=== PATIENT | male | born 1990 | race Caucasian/White ===

== ENCOUNTER 2021-10-29 13:37 | Emergency (ER) | payer SELFPAY ==
[2021-10-29 13:44] VITALS: BP 145/90; PULSE 97; RESP 16; TEMP 37.4; O2SAT 100
--- NOTE | 2021-10-29 13:53 | ED.URI ---
HPI - URI/Sore Throat General Chief Complaint: Upper Respiratory Infection Stated Complaint: Congestion sor throat Time Seen by Provider: 10/29/21 13:53 Source: patient and RN notes reviewed Mode of arrival: ambulatory Limitations: no limitations History of Present Illness HPI Narrative: 31-year-old male presents with concern for body aches, head congestion, cough, sneezing that started yesterday. Reports his work sent him here. He denies nausea, vomiting, diarrhea. Reports feeling feverish. Reports he is taken ibuprofen. MD elicited complaint: cough and sore throat Related Data Home Medications Medication Instructions Recorded Confirmed ibuprofen 200 mg PO Q6H PRN 10/29/21 10/29/21 Allergies Allergy/AdvReac Type Severity Reaction Status Date / Time No Known Allergies Allergy Verified 10/29/21 13:58 Review of Systems Review of Systems: CONSTITUTIONAL: Reports malaise. Denies chills, sweats, or fever. EYES: Denies visual changes, redness, or discharge. ENT: Reports rhinorrhea, congestion, sore throat. CARDIOVASCULAR: Denies chest pain, palpitations, or edema. RESPIRATORY: Reports cough. Denies dyspnea. GASTROINTESTINAL: Denies abdominal pain, nausea, vomiting, diarrhea SKIN: Denies rash or itching. MUSCULOSKELETAL: Reports myalgia. NEUROLOGIC: Reports headache. All systems reviewed & are unremarkable except as noted in HPI and below PMFSH Comments At time of signature, agree with nursing past medical, surgical, social and family history. There is no relevant family history pertinent to the presenting complaint Exam Narrative: GENERAL: Well-appearing, well-nourished, and in no acute distress. HEAD: Normocephalic EYES: PERRLA, conjunctivae clear ENT: Nares clear, clear discharge. Mucous membranes moist. TM pearly ortiz with dull light reflex bilaterally; no tragal tenderness. Oropharynx not erythematous without lesions. Tonsils not enlarged and without exudate, no drooling, no hoarseness, no trismus, uvula midline. NECK: Supple. No lymphadenopathy CHEST: Clear to auscultation, breath sounds equal. No wheezing, rhonchi, rales, or stridor. No respiratory distress, speaks in full sentences. HEART: Regular rate and rhythm. No murmur heard. SKIN: Warm, dry, no rash. NEURO: Alert and oriented x3. PSYCH: Normal mood and affect Course Course Emergency Course: Patient is aware of diagnosis, understands and agrees to treatment plan. Anticipatory guidance given. Patient agrees to follow-up as directed and is aware of reasons to seek care at the emergency department. Portions of this record may have been created with voice recognition software Level of Care: Express Care Visit Vital Signs Vital signs: Vital Signs Temperature 99.4 F 10/29/21 13:44 Pulse Rate 97 10/29/21 13:44 Respiratory Rate 16 10/29/21 13:44 Blood Pressure 145/90 H 10/29/21 13:44 Pulse Oximetry 100 10/29/21 13:44 Temperature 99.4 F 10/29/21 13:44 Pulse Rate 97 10/29/21 13:44 Respiratory Rate 16 10/29/21 13:44 Blood Pressure 145/90 H 10/29/21 13:44 Pulse Oximetry 100 10/29/21 13:44 Reviewed. MDM - URI/Sore Throat MDM Narrative Medical decision making narrative: Differential diagnosis considered: Mcclelland virus, strep pharyngitis, allergic rhinitis, upper respiratory tract infection, sinusitis, rhinosinusitis, nasopharyngitis. viral pharyngitis, otitis media, otitis externa, pneumonia, bronchitis, viral cough syndrome, viral syndrome, and influenza. Exam findings show no acute concerns or changes; patient is non-toxic appearing and is in no distress. Patient is appropriate for outpatient treatment and follow-up. Lab Data Attestation: I reviewed the patient's lab results. Critical Care Time Critical Care Time Critical Care Time: No Discharge Plan Discharge Clinical Impression: Acute viral syndrome Patient Disposition: Home, Self-Care Condition: Stable Instructions: Viral Syndrome (ED) Additional
--- NOTE | 2021-10-29 14:02 | PC.NURSE ---
swabbing pt for flu pt states I will probably slap your hand. Pt informed he is able to refuse test and told not to slap this writers hand for any reason. pt pulls test from nare when insertwed slowly. pt informed may not be accurate as he can not tolerate.
== END 2021-10-29 14:09 | disposition home or self-care (01) ==
PROVIDERS: Emergency Provider Nurse Practitioner
DX: B34.9 Viral infection, unspecified (principal)
CPT/HCPCS: 87804; 99213; G0463